=== PATIENT | male | born 1955 | race Caucasian/White ===

== ENCOUNTER 2023-11-11 20:39 | Emergency (ER) | payer MEDICARE, OTHER, SELFPAY ==
[2023-11-11 20:46] VITALS: BP 142/101
--- NOTE | 2023-11-11 22:46 | ED.GENMED ---
History of Present Illness
General
Chief Complaint: Skin Surface Trauma
Source: patient
Exam Limitations: none
Time Seen by Provider: 11/11/23 22:12
Travel History
Have you had any contact with someone who has COVID-19?: No
Do you have any symptoms of coronavirus? Fever > 100 degrees, chills, cough, shortness of breath, sore throat, loss of taste or smell, muscle aches, or headache?: No
History of Present Illness
History of Present Illness:
This is a 68 year old male that comes in with c/o right ear bleeding due to his Mohs surgery today. States that he had surgery about 9am and then this evening the bleeding started and the dressing was soaked. States that at this time the bleeding
has stopped. Denies any fever, chills, nausea, vomiting, diarrhea.
Past History
Past History
ED Past Medical History: Arrthythmia (Atrial fib), CAD, Cancer (Non-Hodgkin's lymphoma, Skin cancer), Hypercholesterolemia, [place] (2008) and Other ( Syncope, Hemorrhoids, ); Negative HTN or NIDDM
ED Past Surgical History: Cardiac (Stent 2008) and Other (Mohs procedure, Eye surgery)
Social History
Tobacco: Non-smoker
Alcohol: Occasional
Personal:
Living: with family
Employment: Employed (Self-employed)
Family History
Family History: Other (Noncontributory)
Review of Systems
Review of Systems
All Other Systems: ROS reviewed and negative except as documented in HPI and ROS
Constitutional: Reports no symptoms; Denies fever or chills
EENT: Reports other (Bleeding from Mohs surgery on left ear)
Respiratory: Reports no symptoms
Cardiac: Reports no symptoms
ABD/GI: Reports no symptoms
: Reports no symptoms
Musculoskeletal: Reports no symptoms
Skin: Reports no symptoms
Neurological: Reports no symptoms
Psychiatric: Reports no symptoms
Phy Exam
General Physical Exam
General Presentation: well appearing and no apparent distress
General age: appears stated age
General Skin: warm and dry
General Habitus: normal
General Mental: alert
General Hydration: appears well hydrated
ENT Exam
ENT Exam: TM's normal, pharynx normal, neck supple and other (Small area of bleeding noted on the right ear on the Gema. )
Eye Exam
Eye Exam: EOMI
Cardiovascular Exam
Cardiovascular Exam: regular rate/rhythm
Musculoskeletal Exam
Musculoskeletal Exam: full ROM
Skin Exam
Skin Exam: normal color, warm/dry, no rash and no petechia
Psychiatric Exam
Psychiatric Exam: normal mood/affect
Course
Vital Signs
Initial and Last Documented VS:
Initial Vital Signs
Temp Pulse Resp BP Pulse Ox
98.4 F 84 18 142/101 96
11/11/23 20:46 11/11/23 20:46 11/11/23 20:46 11/11/23 20:46 11/11/23 20:46
Last Documented Vital Signs
Temp Pulse Resp BP Pulse Ox
98.4 F 84 18 142/101 96
11/11/23 20:46 11/11/23 20:46 11/11/23 20:46 11/11/23 20:46 11/11/23 20:46
MDM/Problems Addressed
Differential Diagnosis Includes:
Post op bleeding
MDM/Problems Addressed:
This is a 68 year old male that comes in with c/o bleeding from the outer right ear after a Mohs surgery.
Bleeding has stopped and patient was told to put Vaseline gauze on the area. Gauze was placed with a dressing and patient discharge home. Patient to return with any concerns.
Chronic conditions affecting care:
NA
Acute Exacerbation and/or Progression of Chronic Illness:
NA
*Pulse Oximetry
Patient hypoxic: no
*EKG
Interpreted by ED Provider?: NA
Rate: EKG- N/A
*Hat Brusher Machine Interpretation
Rate: Hat Brusher Machine- N/A
*Critical Care Note
Total Time (30-74mins, 75-104mins- exclusive of procedures): Not Applicable
ED Attending Note
-
Portions of this chart may have been created with voice recognition software.� Occasional wrong word or��sound alike� substitutions may have occurred due to the inherent limitations of voice recognition software.
Discharge Plan
Departure
Patient Disposition: Home (Routine Discharge)
Date of Disposition: 11/11/23
Time of Disposition: 22:46
Patient with high blood pressure during this ER visit?: Yes
Condition: Good
Covid-19: Not Applicable
Discharge Problem:
Post-op bleeding
Instructions: Wound Care (DC), BLOOD PRESSURE
Prescriptions:
No Action
multivitamin [Daily Multiple] 1 EACH tablet
1 tab PO DAILY
ascorbic acid (vitamin C) [Vitamin C] 500 MG capsule, extended release
500 mg PO BID
Zinc
1 tab PO DAILY
aspirin 325 MG tablet
162.5 mg PO DAILY
Patient Comments:
81 mg po ASA taken on 05/08/21
alfalfa [alfalfa] 1 TAB tablet
5 tab PO BID
cholecalciferol (vitamin D3) [Vitamin D3] 1,000 UNIT capsule
1,000 unit PO DAILY
loratadine 10 MG capsule
10 mg PO PRN PRN (Reason: allergies)
evolocumab [Repatha Syringe] 140 MG/ML syringe
140 mg SQ .EVERY 2 WEEKS
Daga
50 mg PO DAILY
Fish Oil
2,400 mg PO DAILY
Glucosamine Chondroitin Cap
3 cap PO DAILY
Gregg Bark Extract
50 mg PO DAILY
Prostate 5 Lx
2 tab PO DAILY
Turmeric Curcumin
1,200 mg PO DAILY
Vitamion B Complex
1 tab PO DAILY
ibuprofen 200 MG tablet
600 mg PO QID Qty: 1 0RF
Rx Instructions:
take 4x/day (with meals and at bedtime) through Saturday evening; thereafter take as needed
hydrocodone-acetaminophen 1 TABLET tablet
1 tab PO Q4HPRN PRN (Reason: pain not relieved by ibuprofen) Qty: 10 0RF
Referrals:
Emanuel Hallman MD [Family Provider] -
Activity Restrictions/Additional Instructions:
As discussed, your bleeding has stopped. You have had Vaseline gauzed placed on the area of bleeding and dressing applied. Please follow up with the Surgeon as directed. IF YOU HAVE ANY OTHER CONCERNS PLEASE RETURN TO THE EMERGENCY ROOM.
Interventions
Interventions:
*Risk Screen - Suicide Last Done: 11/11/23 20:46
*Neglect/Abuse Screening Last Done: 11/11/23 20:46
ED-Skin Assessment Last Done: 11/11/23 22:18
Discharge Date and Time
Print Language: GEORGIAN
[2023-11-11 23:05] VITALS: BP 144/109
== END 2023-11-11 23:08 | disposition home or self-care (01) ==
LOC: EMR 20:39
PROVIDERS: EMERGENCY PHYSICIAN Emergency Medicine; FAMILY PHYSICIAN Family Medicine
DX: H95.42 Postprocedural hemorrhage of ear and mastoid process following other procedure (principal); R03.0 Elevated blood-pressure reading, without diagnosis of hypertension
CPT/HCPCS: 99282